=== PATIENT | female | born 1945 | race Caucasian/White ===

== ENCOUNTER 2016-12-13 07:11 | Outpatient (CLI) | payer MEDICARE ==
[2016-12-13 11:14] LABS: BASOPHILS # (AUTO) 0.1 10^3/uL (0.0-0.1); BASOPHILS % (AUTO) 0.8 %; EOSINOPHILS # (AUTO) 0.3 10^3/uL (0.0-0.7); EOSINOPHILS % (AUTO) 3.9 %; HCT - HEMATOCRIT 41.5 % (37.0-47.0); HGB - HEMOGLOBIN 14.1 g/dL (12.0-16.0); LYMPHOCYTES # (AUTO) 2.8 10^3/uL (1.5-3.5); LYMPHOCYTES % (AUTO) 41.6 %; MEAN CORPUSCULAR HEMOGLOBIN 30.7 pg (27.0-31.0); MEAN CORPUSCULAR HGB CONC 33.9 g/dL (32.0-36.0); MEAN CORPUSCULAR VOLUME 90.7 fL (81.0-99.0); MEAN PLATELET VOLUME 9.8 fL (7.9-10.8); MONOCYTES # (AUTO) 0.4 10^3/uL (0.0-1.0); MONOCYTES % (AUTO) 5.9 %; NEUTROPHILS # (AUTO) 3.2 10^3/uL (1.5-6.6); NEUTROPHILS % (AUTO) 47.8 %; NUCLEATED RED BLOOD CELLS AUTO 0.1 /100WBC; RED BLOOD COUNT 4.58 10^6/uL (4.20-5.40); UNCORRECTED WHITE BLOOD COUNT 6.8 x10^3/uL; WHITE BLOOD COUNT 6.8 x10^3/uL (4.8-10.8)
[2016-12-13 11:18] LABS: BILIRUBIN,URINE NEGATIVE (NEGATIVE)
[2016-12-13 11:41] LABS: ALBUMIN/GLOBULIN RATIO 1.1 (1.0-2.2); BILIRUBIN,TOTAL 0.9 mg/dL (0.2-1.0); BUN - BLOOD UREA NITROGEN 16 mg/dL (6-20); CALCIUM 9.3 mg/dL (8.5-10.3); CARBON DIOXIDE - CO2 28 mmol/L (21-32); CHLORIDE 103 mmol/L (101-111); CHOLESTEROL 198 mg/dL; CREATININE 0.7 mg/dL (0.4-1.0); GFR - MDRD 82 (>89); GLUCOSE 112 mg/dL (70-100); HDL CHOLESTEROL 50 mg/dL; LDL/HDL RATIO 2.2 (<4.4); POTASSIUM 3.7 mmol/L (3.5-5.0); SODIUM 140 mmol/L (135-145); TRIGLYCERIDES 186 mg/dL; VLDL CHOLESTEROL 37 mg/dL
[2016-12-13 11:51] LABS: UA w/ MICROSCOPIC CHARGE YES
[2016-12-13 11:58] LABS: UR CULTURE IF IND INDICATED
[2016-12-13 11:59] LABS: WBC,URINE 0-3 /HPF (0-5)
[2016-12-13 12:56] LABS: HEMOGLOBIN A1C 0.81 g/dL
== END 2016-12-13 07:12 | disposition home or self-care (01) ==
LOC: LAB.F 07:11
PROVIDERS: ATTEND Internal Medicine
DX: E03.9 Hypothyroidism, unspecified (principal); E87.6 Hypokalemia; R73.01 Impaired fasting glucose
CPT/HCPCS: 36415; 80053; 80061; 81001; 81003; 83036; 84443; 85025; 87086

== ENCOUNTER 2017-01-14 11:09 | Outpatient (CLI) | payer MEDICARE ==
--- NOTE | 2017-01-15 16:49 | Mammography Report ---
DIGITAL SCREENING MAMMOGRAM: 01/14/2017 CLINICAL INDICATION: A 71-year-old with history of late childbearing for screening. COMPARISON: 02/2015, 07/2013, 04/2012, 01/2011, 10/2008, 07/2007. TECHNIQUE: Routine CC and MLO projections were obtained of the breasts. The breasts demonstrate scattered fibroglandular densities bilaterally. Punctate, typically benign c alcifications are present. No suspicious masses, clustered microcalcifications, or regions of trinh ectural distortion are identified. IMPRESSION: BENIGN FINDINGS. RECOMMENDATION: ROUTINE ANNUAL SCREENING UNLESS OTHERWISE CLINICALLY INDICATED. BIRADS CATEGORY: 2, BENIGN FINDINGS. STANDARD QUALIFYING STATEMENTS 1. This examination was reviewed with the aid of Computed-Aided Detection (CAD). 2. A negative or benign imaging report should not delay biopsy if clinically suspicious findings are present. Consider surgical consultation if warranted. More than 5% of cancers are not identified b y imaging. 3. Dense breasts may obscure an underlying neoplasm. JOB #: [id number] EXT JOB #:[id number]
== END 2017-01-14 11:10 | disposition home or self-care (01) ==
LOC: DI 11:09
PROVIDERS: ATTEND Internal Medicine
DX: Z12.31 Encounter for screening mammogram for malignant neoplasm of breast (principal)
CPT/HCPCS: 77067

== ENCOUNTER 2017-03-26 10:18 | Outpatient (CLI) | payer MEDICARE ==
[2017-03-26 19:13] LABS: HEMOGLOBIN A1C 0.72 g/dL
== END 2017-03-26 10:19 | disposition home or self-care (01) ==
LOC: LAB.F 10:18
PROVIDERS: ATTEND Internal Medicine
DX: R73.9 Hyperglycemia, unspecified (principal)
CPT/HCPCS: 36415; 83036

== ENCOUNTER 2020-11-18 03:27 | Emergency (ER) | payer MEDICARE, OTHER ==
[2020-11-18] MEDS ORDERED: KETOROLAC 30 MG/ML VIAL IM STA (04:18)
[2020-11-18] MEDS ORDERED: HYDROmorphone 2 MG TABLET PO STA (04:18)
--- NOTE | 2020-11-18 04:22 | ED Physician Documentation ---
History of Present Illness - Stated complaint Stated Complaint: BACK/LEGS PX - Chief complaint Chief Complaint: Ext Problem - History obtained from History obtained from: Patient - Additonal information Additional information: 75-year-old woman was past medical history of low back pain status post MRI today with evidence of disc narrowing presents with continuing low back pain that is severe overnight, aching quality, localized to the mid lumbar back, radiating to both legs, currently worse on the left leg and worse with elevation of the leg and flexion at the hip. Constant, gradually worsening. Patient denies urinary or fecal incontinence, urinary or fecal retention, saddle anesthesia. Denies fevers. Denies weakness or numbness in the extremities. Review of Systems Ten Systems: 10 systems reviewed and negative Constitutional: denies: Fever GI: denies: Abdominal Pain Musculoskeletal: reports: Back pain, Extremity pain. denies: Neck pain, Joint pain Neurologic: denies: Focal weakness, Numbness PD PAST MEDICAL HISTORY - Past Medical History Past Medical History: Yes Cardiovascular: Hypertension Respiratory: None Neuro: None Endocrine/Autoimmune: None GI: GERD TORCH OPERATOR: None : Incontinence HEENT: None Psych: None Musculoskeletal: None Derm: None - Past Surgical History Past Surgical History: Yes General: Cholecystectomy Ortho: Hip replacement, Other - Present Medications Home Medications: Ambulatory Orders Medication Instructions Recorded Confirmed Chlorthalidone 25 mg PO DAILY 11/18/20 11/18/20 Hydrocodone/Acetaminophen 5 mg PO Q6HR 11/18/20 11/18/20 [Hydrocodone-Acetamin 5-300 mg] Loratadine [Claritin] 10 mg PO DAILY 11/18/20 11/18/20 Oxycodone HCl/Acetaminophen 1 mg PO Q6HR 11/18/20 11/18/20 [Percocet 5-325 mg Tablet] Rosuvastatin Calcium [Crestor] 10 mg PO DAILY 11/18/20 11/18/20 amLODIPine [Norvasc] 5 mg PO DAILY 11/18/20 11/18/20 predniSONE [Deltasone] 10 mg PO DAILY 11/18/20 11/18/20 - Allergies Allergies/Adverse Reactions: Allergies Allergy/AdvReac Type Severity Reaction Status Date / Time No Known Drug Allergies Allergy Verified 11/18/20 03:38 - Social History Does the pt smoke?: No Smoking Status: Never smoker Does the pt drink ETOH?: Yes Does the pt have substance abuse?: No - Immunizations Immunizations are current?: No - POLST Patient has POLST: No PD ED PE NORMAL - Vitals Vital signs reviewed: Yes - General General: Alert and oriented X 3, Well developed/nourished, Other (Mild emotional distress) - HEENT HEENT: Atraumatic, PERRL, EOMI - Neck Neck: No bony TTP - Cardiac Cardiac: RRR - Respiratory Respiratory: No respiratory distress, Clear bilaterally - Abdomen Abdomen: Non tender, Non distended - Back Back: Other (Mid lumbar spine discomfort to palpation) - Derm Derm: Normal color, Warm and dry - Extremities Extremities: No deformity, Other (+straight leg raise on left) - Neuro Neuro: Alert and oriented X 3, No motor deficit, No sensory deficit - Psych Psych: Other (anxious mood and affect) Results - Vitals Vitals: Vital Signs - 24 hr 11/18/20 03:36 Temperature 36.2 C L Heart Rate 88 Respiratory 17 Rate Blood Pressure 131/67 H O2 Saturation 95 Oxygen O2 Source Room air PD MEDICAL DECISION MAKING - ED course ED course: 75-year-old woman presents with back pain symptomatic of sciatica. She is requesting pain medications and to go home. Strict return precautions given. Patient will follow up with her primary doctor for referral to pain management as well as neurosurgery. Departure - Departure Disposition: 01 Home, Self Care Clinical Impression: Sciatica Condition: Good Instructions: ED Sciatica Comments: You were seen in the emergency department for low back pain moving to the legs. You do not have signs of spinal cord damage on examination at this time, but please return if you experience numbness in the groin, accidentally pee or poop yourself, are unable to pee or poop, or if you experience any new or worsening symptoms or have other concerns. Follow-up with your primary doctor and with pain management.
[2020-11-18 04:47] VITALS: BP 132/77
== END 2020-11-18 04:48 | disposition home or self-care (01) ==
LOC: ED 03:27
DX: M54.42 Lumbago with sciatica, left side (principal); M54.41 Lumbago with sciatica, right side; I10 Essential (primary) hypertension
CPT/HCPCS: 96372; 99282; 99284; A9270

== ENCOUNTER 2020-11-22 14:48 | Outpatient (CLI) | payer MEDICARE, OTHER | END 2020-11-22 14:49 | disposition short-term general hospital (02) | LOC: EMS 14:48 | DX: R53.1 Weakness (principal) | CPT/HCPCS: A0425; A0429 ==

== ENCOUNTER 2021-12-26 11:00 | Outpatient (CLI) | payer MEDICARE, OTHER ==
--- NOTE | 2021-12-31 10:58 | Mammography Report ---
BILATERAL DIGITAL SCREENING MAMMOGRAM 3D/2D: 12/26/2021 CLINICAL: Routine screening. Family history of breast cancer. Comparison is made to exams dated: 01/14/2017 mammogram, 03/15/2015 mammogram, 08/17/2013 mammogram, an d 04/22/2012 mammogram - [facility]. The tissue of both breasts is predominantly fa tty. There is a 0.3 cm oval equal density focal asymmetry in the right breast at 1 o'clock anterior depth. This is more prominent and increased in size. No other significant masses, calcifications, or other findings are seen in either breast. IMPRESSION: INCOMPLETE: NEEDS ADDITIONAL IMAGING EVALUATION The 0.3 cm oval equal density focal asymmetry in the right breast is indeterminate. Additional views with possible ultrasound are recommended. This exam was interpreted at Station ID: [id number]. NOTE: For mammograms, a report in lay terms will be sent to the patient. Approximately 15% of breast malignancies will not be visualized mammographically. In the management of a palpable breast mass, a negative mammogram must not discourage biopsy of a clinically suspicious lesion. Electronically Signed By: Sal Sorto M.D. aty/:12/31/2021 08:13:34 ACR BI-RADS Category 0: Incomplete 3340F PARENCHYMAL PATTERN: (F) - The breast(s) demonstrate(s) diffuse fatty replacement. BI-RADS CATEGORY: (0) - 0 Mammo and US [id number] Immediate follow-up LATERALITY: (R)
== END 2021-12-26 11:01 | disposition home or self-care (01) ==
LOC: DI.S 11:00
PROVIDERS: ATTEND Student in an Organized Health Care Education/Training Program
DX: Z12.31 Encounter for screening mammogram for malignant neoplasm of breast (principal); Z80.3 Family history of malignant neoplasm of breast; R92.8 Other abnormal and inconclusive findings on diagnostic imaging of breast

== ENCOUNTER 2022-08-09 09:38 | Outpatient (CLI) | payer MEDICARE, OTHER ==
--- NOTE | 2022-08-12 10:19 | Ultrasound Report ---
LIMITED ULTRASOUND OF RIGHT BREAST: 08/09/2022 CLINICAL: Patient returns today to evaluate an asymmetry in the right breast. Comparison is made to exams dated: 01/23/2022 ultrasound, 01/23/2022 mammogram, and 12/26/2021 mammogram - [facility]. Color flow and real-time ultrasound of the right breast 10 o'clock region were performed. Majano scale images of the real-time examination were reviewed. There is a 0.3 cm x 0.4 cm x 0.2 cm oval cyst with a smooth internal wall in the right breast at 1 o' clock middle depth 10 cm from the nipple. This oval cyst is hypoechoic with posterior acoustic enhan cement. This abnormality is not significantly changed and correlates with mammography findings. Col or flow imaging demonstrates that there is no vascularity present. There also is a possible 1.2 cm x 1 cm x 0.6 cm oval mass with a circumscribed margin in the right br east at 1 o'clock middle depth 10 cm from the nipple. This oval mass is hyperechoic with posterior a coustic shadowing. This abnormality is not significantly changed and correlates with mammography fin dings. Color flow imaging demonstrates that there is no vascularity present. IMPRESSION: PROBABLY BENIGN The 0.3 cm x 0.4 cm x 0.2 cm oval cyst in the right breast at 1 o'clock middle depth is consistent wi th a complicated cyst and is probably benign. The possible 1.2 cm x 1 cm x 0.6 cm oval mass in the right breast at 1 o'clock middle depth is probab ly benign. A follow-up mammogram and an ultrasound in 6 months is recommended to demonstrate stability. This exam was interpreted at Station ID: [id number]. Electronically Signed By: Loi helton/jayleen:08/09/2022 11:33:01 Ultrasound BI-RADS: 3 Probably benign BI-RADS CATEGORY: (3) - 3 Mammo and [place] [id number] 6 month follow-up LATERALITY: (B)
== END 2022-08-09 09:39 | disposition home or self-care (01) ==
LOC: DI 09:38
PROVIDERS: ATTEND Student in an Organized Health Care Education/Training Program
DX: R92.8 Other abnormal and inconclusive findings on diagnostic imaging of breast (principal); N60.01 Solitary cyst of right breast

== ENCOUNTER 2022-08-26 08:51 | Outpatient (CLI) | payer MEDICARE, OTHER ==
[2022-08-26 14:14] LABS: BASOPHILS # (AUTO) 0.1 10^3/uL (0.0-0.1); BASOPHILS % (AUTO) 0.7 %; EOSINOPHILS # (AUTO) 0.5 10^3/uL (0.0-0.7); EOSINOPHILS % (AUTO) 6.5 %; HCT - HEMATOCRIT 42.6 % (37.0-47.0); HGB - HEMOGLOBIN 13.6 g/dL (12.0-16.0); LYMPHOCYTES # (AUTO) 2.9 10^3/uL (1.5-3.5); LYMPHOCYTES % (AUTO) 34.8 %; MEAN CORPUSCULAR HEMOGLOBIN 31.8 pg (27.0-31.0); MEAN CORPUSCULAR HGB CONC 31.9 g/dL (32.0-36.0); MEAN CORPUSCULAR VOLUME 99.5 fL (81.0-99.0); MEAN PLATELET VOLUME 11.6 fL (7.9-10.8); MONOCYTES # (AUTO) 0.4 10^3/uL (0.0-1.0); MONOCYTES % (AUTO) 4.7 %; NEUTROPHILS # (AUTO) 4.4 10^3/uL (1.5-6.6); NEUTROPHILS % (AUTO) 53.1 %; PLT - PLATELET COUNT 233 10^3/uL (130-450); RED BLOOD COUNT 4.28 10^6/uL (4.20-5.40); RED CELL DISTRIBUTION WIDTH 12.9 % (12.0-15.0); WHITE BLOOD COUNT 8.3 x10^3/uL (4.8-10.8)
[2022-08-26 18:34] LABS: CREATININE,URINE 61.3 mg/dL; MICROALBUM/CREATININE RATIO,UR 14.7 ug/mg (<30.0); MICROALBUMIN,URINE 0.9 mg/dL (0-300.0)
[2022-08-26 21:56] LABS: ESTIMATED AVERAGE GLUCOSE 137 mg/dL (70-100); HEMOGLOBIN A1c% 6.4 % (4.27-6.07)
[2022-08-27 18:06] LABS: ALBUMIN 3.8 g/dL (3.2-5.5); CALCIUM 10.4 mg/dL (8.5-10.3); CREATININE 1.1 mg/dL (0.4-1.0); PHOSPHORUS 3.5 mg/dL (2.5-4.6); POTASSIUM 4.1 mmol/L (3.5-5.0)
[2022-08-27 21:07] LABS: ANTI-DNA (DS) AB QN <1 IU/mL (0-9); CENTROMERE B ANTIBODIES <0.2 AI (0.0-0.9); CHROMATIN ANTIBODIES <0.2 AI (0.0-0.9); JO-1 AB <0.2 AI (0.0-0.9); RIBOSOMAL P ANTIBODIES <0.2 AI (0.0-0.9); RNP ANTIBODIES <0.2 AI (0.0-0.9); SCLERODERMA-70 ANTIBODIES <0.2 AI (0.0-0.9); SJOGREN'S ANTI-SS-A <0.2 AI (0.0-0.9); SJOGREN'S ANTI-SS-B <0.2 AI (0.0-0.9); SMITH ANTIBODIES <0.2 AI (0.0-0.9); SMITH/RNP ANTIBODIES <0.2 AI (0.0-0.9)
[2022-08-28 01:07] LABS: VITAMIN D 25-HYDROXY 31.7 ng/mL (30.0-100.0)
[2022-08-28 14:09] LABS: A/G RATIO 1.2 (0.7-1.7); ALBUMIN 3.5 g/dL (2.9-4.4); ALPHA-1-GLOBULIN 0.2 g/dL (0.0-0.4); ALPHA-2-GLOBULIN 0.8 g/dL (0.4-1.0); PROTEIN TOTAL 6.5 g/dL (6.0-8.5)
== END 2022-08-26 08:52 | disposition home or self-care (01) ==
LOC: LAB.S 08:51
PROVIDERS: ATTEND Internal Medicine Nephrology
DX: N18.31 Chronic kidney disease, stage 3a (principal); N17.9 Acute kidney failure, unspecified
CPT/HCPCS: 36415; 80069; 82043; 82306; 82570; 83036; 83970; 84155; 84165; 85025; 86225; 86235

== ENCOUNTER 2023-03-26 09:27 | Outpatient (CLI) | payer MEDICARE, OTHER ==
--- NOTE | 2023-03-27 12:35 | Mammography Report ---
BILATERAL DIGITAL DIAGNOSTIC MAMMOGRAM 3D/2D: 03/26/2023 CLINICAL: Patient returns for a 6 month follow up of the right breast, due for bilateral exam. Comparison is made to exams dated: 01/23/2022 mammogram, 12/26/2021 mammogram, 01/14/2017 mammogram, 03/15 mammogram, and 08/17/2013 mammogram - [facility]. Both breasts are almost entirely fatty (category a/<25% glandular tissue). There is a 0.4 cm oval equal density focal asymmetry with a circumscribed margin in the right breast at 1 o'clock anterior depth. This is seen in additional views. This is not significantly changed. Additionally, there is a 0.8 cm oval focal asymmetry with a circumscribed margin in the right breast at 1 o'clock anterior depth. This is not significantly changed. No other significant masses, calcifications, or other findings are seen in either breast. IMPRESSION: INCOMPLETE: NEEDS ADDITIONAL IMAGING EVALUATION The 0.4 cm oval equal density focal asymmetry in the right breast at 1 o'clock anterior depth is inde terminate. An ultrasound is recommended for further evaluation and is scheduled to immediately follo w this examination. The 0.8 cm oval focal asymmetry in the right breast at 1 o'clock anterior depth is indeterminate. An ultrasound is recommended for further evaluation and is scheduled to immediately follow this examina tion. Based on the Tyrer Cuzick model (a risk assessment model) the patients lifetime risk is 3.5% and her 10 year risk is 0.0%. According to the ACR, ACS, and NCCN guidelines, an annual breast MRI exam jannet g with mammogram is recommended if the patients lifetime risk is 20% or greater. This exam was interpreted at Station ID: [id number]. NOTE: For mammograms, a report in lay terms will be sent to the patient. Approximately 15% of breast malignancies will not be visualized mammographically. In the management of a palpable breast mass, a negative mammogram must not discourage biopsy of a clinically suspicious lesion. Electronically Signed By: Sal Sorto M.D. aty/:03/26/2023 10:48:59 ACR BI-RADS Category 0: Incomplete 3340F PARENCHYMAL PATTERN: (F) - The breast(s) demonstrate(s) diffuse fatty replacement. BI-RADS CATEGORY: (0) - 0 Ultrasound [id number] Immediate follow-up LATERALITY: (R)
--- NOTE | 2023-03-27 12:35 | Ultrasound Report ---
LIMITED ULTRASOUND OF RIGHT BREAST: 03/26/2023 CLINICAL: Patient returns for a 6 month follow up of the right breast. Comparison is made to exams dated: 03/26/2023 mammogram, 08/09/2022 ultrasound, 01/23/2022 ultrasound, 01/23/2022 mammogram, 12/26/2021 mammogram, and 01/14/2017 mammogram - [facility]. Color flow ultrasound of the right breast 1 o'clock region was performed. Majano scale images of the r eal-time examination were reviewed. There is a 0.3 cm x 0.3 cm x 0.3 cm oval cyst with a thin smooth internal wall in the right breast at 1 o'clock middle depth 10 cm from the nipple. This oval cyst is hypoechoic with posterior acoustic enhancement. This abnormality is not significantly changed and correlates with mammography findings. Color flow imaging demonstrates that there is no vascularity present. There also is a possible 1 cm x 0.9 cm x 0.7 cm oval mass with a circumscribed margin in the right br east at 1 o'clock middle depth 10 cm from the nipple. This oval mass is hyperechoic with posterior a coustic shadowing. This abnormality is not significantly changed and correlates with mammography fin dings. Color flow imaging demonstrates that there is no vascularity present. IMPRESSION: PROBABLY BENIGN The 0.3 cm x 0.3 cm x 0.3 cm oval cyst in the right breast at 1 o'clock middle depth is consistent wi th a complicated cyst and is probably benign. The possible 1 cm x 0.9 cm x 0.7 cm oval mass in the right breast at 1 o'clock middle depth is probab ly benign. A follow-up bilateral mammogram and a right ultrasound in 12 months is recommended to document long t erm stability. Findings and recommendations were conveyed to the patient during today's evaluation. This exam was interpreted at Station ID: [id number]. Electronically Signed By: Sal Sorto M.D. aty/:03/26/2023 11:10:52 Ultrasound BI-RADS: 3 Probably benign BI-RADS CATEGORY: (3) - 3 Mammo and US [id number] 12 month follow-up LATERALITY: (B)
== END 2023-03-26 09:28 | disposition home or self-care (01) ==
LOC: DI 09:27
PROVIDERS: ATTEND Internal Medicine
DX: N60.01 Solitary cyst of right breast (principal); N63.12 Unspecified lump in the right breast, upper inner quadrant

== ENCOUNTER 2023-08-12 10:00 | Day surgery (SDC) | payer MEDICARE, OTHER ==
[2023-08-12] MEDS ORDERED: LACTATED RINGERS 1,000 ML IV ONE ×2 (10:05→11:23)
[2023-08-12] MEDS ORDERED: PROPOFOL 500 MG/50 ML 500 MG/50 ML VIAL ONE (10:16)
--- NOTE | 2023-08-12 10:43 | ANESTHESIA ---
Pre-Anesthesia VS, & Labs - Diagnosis history of polyps - Procedure colonoscopy Vital Signs: Temp Pulse Resp BP Pulse Ox O2 Flow Rate 81411 C H 94 16 143/70 H 97 08/12/23 10:10 08/12/23 10:10 08/12/23 10:10 08/12/23 10:10 08/12/23 10:10 Height: 5 ft 4 in Weight (kg): 91.8 kg Body Mass Index: 34.7 BMI Classification: Obese - NPO Other (prep as directed) - Is Patient ?: No Home Medications and Allergies Home Medications: Ambulatory Orders Acetaminophen [Tylenol] 2 tab PO DAILY 08/11/23 Levothyroxine [Synthroid] 1 tab PO DAILY 08/11/23 Loratadine [Claritin] 1 cap PO DAILY 08/11/23 Telmisartan 40 mg PO DAILY 08/11/23 Loratadine [Claritin] 10 mg PO DAILY 11/18/20 Rosuvastatin Calcium [Crestor] 10 mg PO DAILY 11/18/20 Acetaminophen [Tylenol] 2 tab PO DAILY 08/11/23 Levothyroxine [Synthroid] 1 tab PO DAILY 08/11/23 Loratadine [Claritin] 1 cap PO DAILY 08/11/23 Telmisartan 40 mg PO DAILY 08/11/23 Allergies/Adverse Reactions: Allergies Allergy/AdvReac Type Severity Reaction Status Date / Time codeine AdvReac Intermediate Unknown Verified 08/11/23 13:27 Anes History & Medical History - Anesthetic History Anesthesia Complications: reports: No previous complications - Medical History Cardiovascular: reports: Hypertension, High cholesterol, Murmur Pulmonary: reports: None Gastrointestinal: reports: GERD, Colon polyps Urinary: reports: Incontinence Neuro: reports: None Musculoskeletal: reports: None, Other Endocrine/Autoimmune: reports: None, HyPOthyroidism Blood Disorders: reports: None Skin: reports: None Smoking Status: Former smoker Psychosocial: reports: Alcohol (nightly wine) - Surgical History General: reports: Cholecystectomy Orthopedic: reports: Hip replacement Exam Dental: WNL Mouth Opening: Greater than 4 Fingerbreadths Neck Mobility: Normal Mallampati classification: II Thyromental Distance: greater than 6 cm Respiratory: Lungs clear Cardiovascular: Regular rate, Other (2/6 murmur) Plan Anesthesia Type: Total IV Consent for Procedure(s) Verified and Reviewed: Yes Code Status: Attempt Resuscitation ASA classification: 2-Mild systemic disease Is this case an emergency?: No
[2023-08-12] MEDS ORDERED: SIMETHICONE 40 MG/0.6 ML 15 ML BOTTLE PO ONE (11:05)
[2023-08-12] MEDS ORDERED: LIDOCAINE-PF 2% 10 ML AMP SUBQ ONE (11:06)
[2023-08-12 11:48] VITALS: BP 120/69; O2SAT 97
--- NOTE | 2023-08-12 12:22 | ANESTHESIA POST OP EVALUATION ---
Anesthesia Post Eval - Post Anesthesia Eval Vitals: Last Vital Signs Temp 37.3 C 08/12/23 11:23 Pulse 82 08/12/23 11:37 Resp 20 08/12/23 11:37 BP 120/69 08/12/23 11:37 Pulse Ox 97 08/12/23 11:37 O2 Flow Rate CV Function Including HR & BP: Stable Pain Control: Satisfactory Nausea & Vomiting: Negative Mental Status: Baseline Respiratory Status: Airway Patent Hydration Status: Satisfactory Anesthesia Complications: None
== END 2023-08-12 10:01 | disposition home or self-care (01) ==
LOC: SDS 10:00
PROVIDERS: ATTEND Surgery
DX: Z12.11 Encounter for screening for malignant neoplasm of colon (principal); K57.30 Diverticulosis of large intestine without perforation or abscess without bleeding; E66.9 Obesity, unspecified; Z68.34 Body mass index [BMI] 34.0-34.9, adult; Z86.010 Personal history of colon polyps; Z87.891 Personal history of nicotine dependence
CPT/HCPCS: A9270; G0105; J7120